=== PATIENT | male | born 1990 | race Two or more races ===

== ENCOUNTER 2024-10-23 18:45 | Inpatient (IN) | payer OTHER ==
[~2024-10-23] VITALS: Ht 175.3 cm; Wt 63.6 kg
[2024-10-23] MEDS: LORazepam 1 MG TABLET PO ONE (20:11)
[2024-10-23] MEDS ORDERED: MAGNESIUM HYDROXIDE SUSPENSION 30 ML UDCUP PO PRN (22:00)
[2024-10-23] MEDS ORDERED: ZOLPIDEM TARTRATE 5 MG TABLET PO PRN (22:00)
[2024-10-23 23:54] LABS: COVID AG,FIA SOURCE NASAL SWAB
[2024-10-23 23:57] LABS: SARS-COV2 (COVID) ANTIGEN,FIA Negative (Negative)
[2024-10-23 23:58] LABS: APPEARANCE,URINE CLEAR (CLEAR); BILIRUBIN,URINE NEGATIVE (NEGATIVE); COLOR,URINE YELLOW (YELLOW); GLUCOSE, URINE (UA) NEGATIVE (NEGATIVE); KETONES,URINE NEGATIVE (NEGATIVE); LEUKOCYTE ESTERASE ,URINE NEGATIVE (NEGATIVE); NITRATE,URINE NEGATIVE (NEGATIVE); OCCULT BLOOD,URINE NEGATIVE (NEGATIVE); PH,URINE 6.5 (5.0-8.0); PH,URINE DRUG SCREEN 6.5 (5.0-8.0); PROTEIN,URINE 30-70 mg/dL (NEGATIVE); SPECIFIC GRAVITIY, URINE 1.034 (1.003-1.030); UROBILINOGEN,URINE <=1.0 mg/dL (<=1.0)
[2024-10-24 00:03] LABS: ALCOHOL, URINE DRUG SCREEN NEGATIVE (NEGATIVE); AMPHET/METH SCREEN,URINE NEGATIVE (NEGATIVE); BARBITURATE SCREEN, URINE NEGATIVE (NEGATIVE); BENZODIAZEPINES SCREEN,URINE NEGATIVE (NEGATIVE); CANNABINOID SCREEN,URINE POSITIVE (NEGATIVE); COCAINE SCREEN,URINE NEGATIVE (NEGATIVE); METHADONE SCREEN, URINE NEGATIVE (NEGATIVE); OPIATE SCREEN,URINE NEGATIVE (NEGATIVE); PHENCYCLIDINE SCREEN,URINE NEGATIVE (NEGATIVE)
[2024-10-24 00:44] VITALS: BP 132/87; PULSE 76; RESP 18; TEMP 97.5; O2SAT 100
[2024-10-24 04:45] VITALS: BP 123/87; PULSE 65; RESP 16; TEMP 97.9; O2SAT 100
[2024-10-24 07:43] LABS: BASOPHILS % (AUTO) 0.8 % (0.0-2.0); EOSINOPHILS % (AUTO) 1.4 % (1.0-6.0); HEMATOCRIT 46.7 % (41-53); HEMOGLOBIN 15.6 g/dL (13.5-17.5); LYMPHOCYTES # (AUTO) 2.2 K/uL (1.0-4.8); LYMPHOCYTES % (AUTO) 32.2 % (22.0-44.0); MEAN CORPUSCULAR HGB CONC 33.4 G/dL (31.0-37.0); MEAN CORPUSCULAR VOLUME 93 fL (80-100); MONOCYTES # (AUTO) 0.5 K/uL (0.1-1.0); MONOCYTES % (AUTO) 7.1 % (2.0-9.0); NEUTROPHILS # (AUTO) 4.1 K/uL (1.8-7.7); NEUTROPHILS % (AUTO) 58.5 % (40.0-70.0); PLATELET COUNT (AUTO) 291 K/uL (150-450); RED BLOOD CELL COUNT(AUTO) 5.04 MIL/uL (4.50-5.90)
[2024-10-24 07:53] LABS: ANION GAP 8 mmol/L (8-16); CALCIUM, TOTAL 9.1 mg/dL (8.8-10.5); CARBON DIOXIDE 27 mmol/L (22-29); CHLORIDE 104 mmol/L (98-107); CREATININE 0.73 mg/dL (0.60-1.30); GLOMERULAR FILTR. RATE CALC > 60 mL/min (>60); GLUCOSE,RANDOM 86 mg/dL (70-110); SODIUM SERUM 139 mmol/L (136-145); UREA NITROGEN, BLOOD 13 mg/dL (7-18)
[2024-10-24 08:00] VITALS: BP 121/85; PULSE 72; RESP 16; TEMP 98; O2SAT 100
[2024-10-24 08:09] LABS: ALCOHOL, BLOOD (SERUM) < 3 mg/dL (0-10)
[2024-10-24] MEDS ORDERED: ACET-2247 PO (10:19)
[2024-10-24] MEDS ORDERED: MAGN-169 PO ×2 (10:21)
[2024-10-24] MEDS: HydrOXYzine HCL 50 MG TABLET PO ONE (11:30)
[2024-10-24] MEDS: HALOPERIDOL LACTATE 5 MG/ML VIAL IM ONE (11:57)
[2024-10-24] MEDS: LORazepam 2 MG/ML VIAL IM ONE (11:58)
[2024-10-24] MEDS: DiphenhydrAMINE HCL 50 MG/ML VIAL IM ONE (12:02)
[2024-10-24 17:54] VITALS: BP 124/93; PULSE 60; RESP 18; TEMP 97.5; O2SAT 100
[2024-10-24 20:20] VITALS: BP 134/88; PULSE 83; RESP 18; TEMP 97.9; O2SAT 100
[2024-10-25 05:35] VITALS: BP 119/76; PULSE 75; RESP 18; TEMP 97.7; O2SAT 100
[2024-10-25] MEDS: ACETAMINOPHEN 325 MG TABLET PO PRN (05:57)
[2024-10-25 08:00] VITALS: BP 130/80; PULSE 95; RESP 18; TEMP 97.9; O2SAT 100
[2024-10-25 16:06] VITALS: BP 136/93; PULSE 92; RESP 18; TEMP 97.9; O2SAT 100
== END 2024-10-25 20:45 | DRG 885 ==
LOC: EMS 18:45 → EDH 21:52 → 6S 10-24 00:35
PROVIDERS: ADMIT Internal Medicine; ATTEND Internal Medicine
PROC: GZ56ZZZ Individual Psychotherapy, Supportive (ICD-10-PCS; principal; 2024-10-24)
DX: F29 Unspecified psychosis not due to a substance or known physiological condition (principal); I10 Essential (primary) hypertension; G43.909 Migraine, unspecified, not intractable, without status migrainosus; Z20.822 Contact with and (suspected) exposure to COVID-19; F41.9 Anxiety disorder, unspecified
CPT/HCPCS: 80048; 80307; 81003; 85025; 99285; G0378; G0480; J1200; J1630; J2060